=== PATIENT | male | born 1940 | race Caucasian/White ===

== ENCOUNTER 2022-04-29 21:21 | Emergency (ER) | payer MEDICARE, OTHER ==
[~2022-04-29] VITALS: Ht 170.2 cm; Wt 100.0 kg
[2022-04-29 21:24] VITALS: TEMP 98.3
[2022-04-29 21:36] LABS: BASO # 0.1 K/mm3 (0.0-0.2); BASO % 0.7 % (0.0-2.0); EOS # 0.3 K/mm3 (0.0-0.7); EOS % 2.4 % (0.0-4.0); GRAN % 53.1 % (42.2-75.2); HEMOGLOBIN 17.6 g/dl (13.5-18.0); LYMPH # 3.8 K/mm3 (1.2-3.4); LYMPH % 33.9 % (20.0-51.0); MEAN CELL VOLUME 93 fl (80.0-100.0); MEAN CORPUSCULAR HEMOGLOBIN 31 pg (27-31); MEAN CORPUSCULAR HGB CONC 34 g/dl (33.0-37.0); MEAN PLATELET VOLUME 9.5 fl (7.4-10.4); MONO # 1.1 K/mm3 (0.1-0.6); MONO % 9.7 % (1.7-9.3); PLATELET COUNT 329 K/mm3 (130-400); RED BLOOD COUNT 5.63 M/mm3 (4.20-5.60); REDCELL DISTRIBUTION WIDTH-CV 13.6 % (11.5-14.5)
[2022-04-29 21:37] LABS: HEMATOCRIT 52.1 % (42.0-52.0)
[2022-04-29 21:44] LABS: PROTHROMBIN TIME 11.8 SECONDS (9.7-12.8)
[2022-04-29 21:47] LABS: PARTIAL THROMBOPLASTIN TIME 39.6 SECONDS (26.0-37.0)
[2022-04-29 21:52] LABS: ALBUMIN 4.3 gm/dL (3.4-4.8); BILIRUBIN,TOTAL 0.4 mg/dL (0.2-1.2); CALCIUM 11.4 mg/dL (8.4-10.2); CREATININE, serum 1.03 mg/dL (0.72-1.25); POTASSIUM 4.5 mmol/L (3.5-4.5); TOTAL PROTEIN 7.7 gm/dL (6.2-8.1)
[2022-04-29 21:57] LABS: TROPONIN-I 0.015 ng/mL (0.00-0.033)
[2022-04-30 00:37] VITALS: BP 168/94; PULSE 72
== END 2022-04-30 00:38 | disposition home or self-care (01) ==
LOC: COL.ER 21:21
PROVIDERS: Emergency Medicine
DX: I10 Essential (primary) hypertension (principal); I48.91 Unspecified atrial fibrillation; Z28.310 Unvaccinated for COVID-19; Z87.891 Personal history of nicotine dependence; Z79.01 Long term (current) use of anticoagulants